=== PATIENT | female | born 1995 | race Caucasian/White ===

== ENCOUNTER 2022-07-19 11:48 | Emergency (ER) | payer BC ==
[2022-07-19] MEDS ORDERED: Ciprofloxacin 0.3% Ophth Soln 5 ML Bottle EARLF ONE (12:11)
[2022-07-19] MEDS ORDERED: Amoxicillin 250 MG/5 ML Susp 150 ML Bottle PO ONE (12:16)
[2022-07-19] MEDS ORDERED: Ibuprofen 600 MG Tab PO ONE (12:17)
[2022-07-19] MEDS ORDERED: Amoxicillin 500 MG Cap PO ONE (12:20)
== END 2022-07-19 12:33 | disposition home or self-care (01) ==
LOC: KA.ED 11:48
DX: H65.92 Unspecified nonsuppurative otitis media, left ear (principal); H72.92 Unspecified perforation of tympanic membrane, left ear; Z88.2 Allergy status to sulfonamides
CPT/HCPCS: 99282; 99283; A9270-GY